=== PATIENT | male | born 1950 | race Caucasian/White ===

== ENCOUNTER 2018-01-07 13:47 | Emergency (ER) | payer MEDICARE ==
[~2018-01-07] VITALS: Ht 188 cm; Wt 97.0 kg
[2018-01-07 13:51] VITALS: BP 173/107; PULSE 109; RESP 14; TEMP 98.7; O2SAT 98
--- NOTE | 2018-01-07 14:42 | PD ---
HPI Chief Complaint: Skin Problem Time Seen by Provider: 14:30 Travel History International Travel<30 days: No Contact w/Intl Traveler<30days: No Traveled to known affect area: No History of Present Illness HPI 67yo M with no PMH presents to the ED with c/o left leg pain for 5 days. Said it started off as a pin prick and started having redness and swelling. Denies any fever, chest pain, sob, n/v, abdominal pain, focal weakness or numbness. Denies any trauma. PFSH Social History Tobacco Use: No Allergies-Medications (Allergen,Severity, Reaction): Coded Allergies: No Known Allergies (Unverified , 01/10/18) Reported Meds & Prescriptions Reported Meds & Active Scripts Active Tylenol (Acetaminophen) 325 Mg Tab 650 Mg PO Q6H PRN Clindamycin (Clindamycin HCl) 300 Mg Cap 300 Mg PO Q6H 10 Days Review of Systems Except as stated in HPI: all other systems reviewed are Neg Physical Exam Narrative GEN: 67yo M not in distress. HEAD: Normocephalic, atraumatic. CV: S1, S2. Lungs: CTA B/L, equal breath sounds. Abd: soft, NT/ND Ext: LLE: +Edema in tib/fib 21cm by 21cm. There is a central area of fluctuance. DP 2+. Sensation intact. FROM in left knee and ankle. Data Data Last Documented VS Vital Signs Date Time Temp Pulse Resp B/P (MAP) Pulse Ox O2 Delivery O2 Flow Rate FiO2 01/07/18 17:24 80 163/102 (122) 01/07/18 14:16 16 01/07/18 13:51 98.7 98 Room Air Orders Orders Basic Metabolic Panel (Bmp) (01/07/18 14:41) Complete Blood Count With Diff (01/07/18 14:41) Iv Access Insert/Monitor (01/07/18 14:41) Ketorolac Inj (Toradol Inj) (01/07/18 14:45) Clindamycin Inj (Cleocin Inj) (01/07/18 14:45) Clindamycin 600 Mg/Ns Premix (Cleocin 60 (01/07/18 15:00) Lidocaine 1% Inj (Xylocaine 1% Inj) (01/07/18 16:00) Ed Discharge Order (01/07/18 17:25) Labs Laboratory Tests Test 01/07/18 14:51 White Blood Count 9.4 TH/MM3 Red Blood Count 4.67 MIL/MM3 Hemoglobin 14.8 GM/DL Hematocrit 41.5 % Mean Corpuscular Volume 88.9 FL Mean Corpuscular Hemoglobin 31.8 PG Mean Corpuscular Hemoglobin Concent 35.7 % Red Cell Distribution Width 12.9 % Platelet Count 212 TH/MM3 Mean Platelet Volume 9.9 FL Neutrophils (%) (Auto) 75.4 % Lymphocytes (%) (Auto) 11.8 % Monocytes (%) (Auto) 10.3 % Eosinophils (%) (Auto) 1.6 % Basophils (%) (Auto) 0.9 % Neutrophils # (Auto) 7.1 TH/MM3 Lymphocytes # (Auto) 1.1 TH/MM3 Monocytes # (Auto) 1.0 TH/MM3 Eosinophils # (Auto) 0.2 TH/MM3 Basophils # (Auto) 0.1 TH/MM3 CBC Comment DIFF FINAL Differential Comment Blood Urea Nitrogen 15 MG/DL Creatinine 1.25 MG/DL Random Glucose 178 MG/DL Calcium Level 8.6 MG/DL Sodium Level 133 MEQ/L Potassium Level 3.4 MEQ/L Chloride Level 100 MEQ/L Carbon Dioxide Level 23.9 MEQ/L Anion Gap 9 MEQ/L Estimat Glomerular Filtration Rate 58 ML/MIN MDM Medical Decision Making Medical Screen Exam Complete: Yes Emergency Medical Condition: Yes Differential Diagnosis Abscess vs. cellulitis Narrative Course 67yo well appearing male here with left leg cellulitis and central abscess. Labs reviewed, no leukocytosis. H/H normal. Mild hyponatremia at 133. Pt denies any trauma but has marked erythema and edema in left leg. He is nontoxic appearing but because of how large the infection is, I offered admission for IV antibiotics. However, pt refused admission and said will return if symptoms worsen. I&D was performed. Pt given clindamycin IV and toradol. Pt reevaluated at bedside and said it is better. Procedures Procedure Narrative Abscess I&D: Betadine was used to clean and 5cc of 1% lidocaine injected in area of abscess. #11 blade used to cut abscess and bloody, purulent discharge drained. Normal saline use to irrigate. 1/2 iodoform packing use to pack wound. cover with sterile dressing. Pt tolerated procedure well. Diagnosis Primary Impression: Cellulitis Qualified Codes: L03.116 - Cellulitis of left lower limb Patient Instructions: General Instructions Departure Forms: Tests/Procedures Additional Instructions: Please return to the ED in 2 days for packing removal and wound check. Return to the ED earlier if symptoms worsen. Please follow up with your primary care physician for blood pressure monitoring since it was elevated today. Med/Other Pt SpecificInfo: Prescription(s) given Scripts Acetaminophen (Tylenol) 325 Mg Tab 650 MG PO Q6H Y for PAIN SCALE 1 TO 4, #20 TAB 0 Refills Prov: Cait Viera DO 01/07/18 Clindamycin (Clindamycin) 300 Mg Cap 300 MG PO Q6H for Infection for 10 Days, #40 CAP 0 Refills Prov: Cait Viera DO 01/07/18 Disposition: 01 DISCHARGE HOME Condition: Stable Cait Viera DO Jan 07, 2018 14:42
[2018-01-07] MEDS ORDERED: KETOROLAC TROMETHAMINE 30 MG/ML (IVP) VIAL IVP ONE (14:45)
[2018-01-07] MEDS ORDERED: CLINDAMYCIN INJ 600 MG in SODIUM CHLORIDE 0.9% INJ 100 ML IV ONE (14:45)
[2018-01-07] MEDS ORDERED: CLINDAMYCIN 600 MG/NS PREMIX 50 ML IV ONE (15:00)
[2018-01-07 15:13] LABS: AUTOMATED NEUTROPHIL # 7.1 TH/MM3 (1.8-7.7); BASOPHIL # 0.1 TH/MM3 (0-0.2); BASOPHIL % 0.9 % (0.0-2.0); EOSINOPHIL # 0.2 TH/MM3 (0-0.4); EOSINOPHIL % 1.6 % (0.0-4.0); HEMATOCRIT 41.5 % (39.0-51.0); HEMOGLOBIN 14.8 GM/DL (13.0-17.0); LYMPH % 11.8 % (9.0-44.0); LYMPHOCYTE # 1.1 TH/MM3 (1.0-4.8); MEAN CELL VOLUME 88.9 FL (80.0-100.0); MEAN CORPUSCULAR HEMOGLOBIN 31.8 PG (27.0-34.0); MEAN CORPUSCULAR HGB CONC 35.7 % (32.0-36.0); MEAN PLATELET VOLUME 9.9 FL (7.0-11.0); MONO % 10.3 % (0.0-8.0); NEUT % 75.4 % (16.0-70.0); PLATELET COUNT 212 TH/MM3 (150-450); RED BLOOD COUNT 4.67 MIL/MM3 (4.50-5.90); RED CELL DISTRIBUTION WIDTH 12.9 % (11.6-17.2); WHITE BLOOD COUNT 9.4 TH/MM3 (4.0-11.0)
[2018-01-07 15:30] LABS: BICARBONATE 23.9 MEQ/L (21.0-32.0); CALCIUM 8.6 MG/DL (8.5-10.1); CREATININE 1.25 MG/DL (0.60-1.30)
[2018-01-07] MEDS ORDERED: LIDOCAINE HCL 1% 20 ML VIAL INFIL ONE (16:00)
[2018-01-07 17:24] VITALS: BP 163/102; PULSE 80
[2018-01-07] MEDS ORDERED: TYLE325T PO (17:25)
[2018-01-07] MEDS ORDERED: CLIN300C5 PO (17:25)
== END 2018-01-07 17:32 | disposition home or self-care (01) ==
LOC: NEPD 13:47
DX: L03.116 Cellulitis of left lower limb (principal); L02.416 Cutaneous abscess of left lower limb
CPT/HCPCS: 10061; 80048; 85025; 96365; 96366; 96375; 99284; J1885